=== PATIENT | female | born 1965 | race Caucasian/White ===

== ENCOUNTER 2017-11-25 16:12 | Emergency (ER) | payer OTHER ==
[~2017-11-25] VITALS: Ht 162.6 cm; Wt 54.4 kg
[2017-11-25 16:17] VITALS: BP 125/73
--- NOTE | 2017-11-25 16:20 | ED UPPER/LOWER EXTREMITY COMPL ---
History of Present Illness General Chief Complaint: Suture Removal/Wound Recheck Stated Complaint: R LITTLE TOE SUTURE REMOVAL Source: patient Exam Limitations: no limitations Vital Signs & Intake/Output Vital Signs & Intake/Output Vital Signs Date Time Temp Pulse Resp B/P B/P Pulse O2 O2 Flow FiO2 Mean Ox Delivery Rate 11/25 1620 96 11/25 1617 98.6 68 18 125/73 96 Room Air Allergies Coded Allergies: NO KNOWN ALLERGIES (UNKNOWN 11/16/17) Triage Note: PT STATES HERE FOR SUTURE REMOVAL FROM RIGHT PINKY TOE PLACED LAST SATURDAY EVENING,. Triage Nurses Notes Reviewed? yes Onset: Abrupt Duration: better Timing: recent history Severity: mild Severity Numbers: 3 HPI: Patient has 52-year-old female who presents emergency room with request of suture removal and wound evaluation in which old records indicate that patient was evaluated here at [place] emergency room for concerns of a laceration to the right fifth toe after dropping a can of pineapples where laceration occurred and patient also had concerns of a fracture to the region #1 suture was placed patient states that the pain has improved denies any fever chills discharge or swelling or erythema to the region. ([place]) Past History Travel History Traveled to [place] past 21 day No Medical History Any Pertinent Medical History? none Surgical History Surgical History: non-contributory, appendectomy (]), arthroscopy ('}}}}}}}}""" """""""""""""""""") Psychosocial History What is your primary language Serbian Tobacco Use: Never used ETOH Use: denies use Illicit Drug Use: denies illicit drug use Family History Hx Contributory? No ([place]) Review of Systems Review of Systems Constitutional: Reports: no symptoms. EENTM: Reports: no symptoms. Respiratory: Reports: no symptoms. Cardiovascular: Reports: no symptoms. Gastrointestinal/Abdominal: Reports: no symptoms. Genitourinary: Reports: no symptoms. Musculoskeletal: Reports: see HPI. Skin: Reports: see HPI. Neurological/Psychological: Reports: no symptoms. Hematologic/Endocrine: Reports: no symptoms. Immunological: Reports: no symptoms. All Other Systems: Reviewed and Negative ([place]) Physical Exam Physical Exam General Appearance: no apparent distress, alert Head: atraumatic Eyes: Bilateral: normal appearance. Ears, Nose, Throat: hearing grossly normal Cardiovascular/Respiratory: no respiratory distress Peripheral Pulses: 2+ dorsalis pedis (R) Neurologic/Tendon: normal sensation, normal motor functions, normal tendon functions, responds to pain, no evidence tendon injury, no pulse deficit Skin: intact, normal color Diagram Feet Top 1) Noted well-healing 5 mm laceration with #1 intact suture no strong erythema warmth or tenderness skin intact dermatomes intact ([place]) Progress Differential Diagnosis: arterial insufficiency, compartment syndrome, contusion, dislocation, DVT, fracture, gout, septic arthritis, sprain, tendon injury Plan of Care: No signs of infectious process, #1 suture was removed without complications bacitracin bandage was applied ([place]) Departure Departure Disposition: HOME OR SELF CARE Condition: Stable Clinical Impression Primary Impression: Wound of cheek Secondary Impressions: Visit for suture removal Referrals: Celio Penn MD (PCP/Family) Additional Instructions: If symptoms worsen or if YOU develop a concerning symptom return to emergency room, follow-up with primary care doctor if no better in one week. Begin icing 20 minutes every 2 hours for pain and ibuprofen as directed for if needed Departure Forms: Customer Survey General Discharge Information ([place]) PA/BODY BUMPER Co-Sign Statement Statement: ED Attending supervision documentation- [] I saw and evaluated the patient. I have also reviewed all the pertinent lab results and diagnostic results. I agree with the findings and the plan of care as documented in the PA's/BODY BUMPER's documentation. [X] I have reviewed the ED Record and agree with the PA's/BODY BUMPER's documentation. [] Additions or exceptions (if any) to the PAs/BODY BUMPER's note and plan are summarized below: [] (Lew Reece DO
== END 2017-11-25 16:27 ==
LOC: ERH 16:12
DX: Z48.02 Encounter for removal of sutures (principal)